=== PATIENT | female | born 1960 | race Caucasian/White ===

== ENCOUNTER → 2016-05-08 | Outpatient (CLI) | payer OTHER, BC | END | disposition home or self-care (01) | LOC: C.PAPS 11:20 | PROVIDERS: ATTEND Obstetrics & Gynecology | DX: Z12.4 Encounter for screening for malignant neoplasm of cervix (principal) ==

== ENCOUNTER → 2016-09-08 | Outpatient (CLI) | payer OTHER ==
--- NOTE | 2016-09-08 11:48 | DIAGNOSTIC IMAGING REPORT ---
Ultrasound guided thyroid aspiration GUIDANCE NEEDLE PLACEMENT CLINICAL HISTORY: LEFT Side, thyroid NODULE nodule TECHNIQUE: Ultrasound guided thyroid aspiration COMPARISON STUDY: 08/24/2016 FINDINGS: Following description of the procedure and informed consent, a single pass with a 25-gauge needle was made to the dominant nodule left thyroid. Pathology indicated adequate specimen volume. There were no complications. IMPRESSION: Successful left thyroid fine-needle aspiration Electronically signed by: German Jean M.D. 09/08/2016 11:47 AM Dictated Date/Time: 09/08/2016 11:46 AM
== END | disposition home or self-care (01) ==
LOC: C.ULTR 10:50
DX: E04.1 Nontoxic single thyroid nodule (principal)

== ENCOUNTER → 2017-01-20 | Outpatient (CLI) | payer OTHER ==
--- NOTE | 2017-01-21 07:46 | MAMMOGRAPHY REPORT ---
BILATERAL DIGITAL SCREENING MAMMOGRAM TOMOSYNTHESIS WITH CAD: 01/20/2017 CLINICAL HISTORY: Routine screening. Patient has no complaints. TECHNIQUE: Breast tomosynthesis in addition to standard 2D mammography was performed. Current study was also evaluated with a Computer Aided Detection (CAD) system. COMPARISON: Comparison is made to exams dated: 10/21/2011 mammogram, 10/01/2010 mammogram - [facility], 08/31/2007, 07/14/2006, and 05/26/2005 mammogram - [facility]. BREAST COMPOSITION: The tissue of both breasts is heterogeneously dense, which may obscure small mas ses. FINDINGS: There are stable benign-appearing calcifications bilaterally, and stable asymmetry in the l ateral right breast. No suspicious mass, architectural distortion or cluster of suspicious microcalc ifications is seen. IMPRESSION: ACR BI-RADS CATEGORY 1: NEGATIVE There is no mammographic evidence of malignancy. A 1 year screening mammogram is recommended. The pa tient will receive written notification of the results. Approximately 10% of breast cancers are not detected with mammography. A negative mammographic report should not delay biopsy if a clinically suggestive mass is present. Vidya Newman M.D. ay/:01/20/2017 13:29:47 [employer]: Adela Guzman, [facility] letter sent: Normal 1/2 BI-RADS Code: ACR BI-RADS Category 1: Negative
== END | disposition home or self-care (01) ==
LOC: C.MAMM 12:35
PROVIDERS: ATTEND Obstetrics & Gynecology
DX: Z12.31 Encounter for screening mammogram for malignant neoplasm of breast (principal)

== ENCOUNTER → 2017-03-30 | Outpatient (CLI) | payer OTHER ==
[2017-03-30 16:34] LABS: BASO % 0.4 %; BASO ABS # 0.02 K/uL (0-0.2); COMPLETE YES; EOS % 1.3 %; HEMATOCRIT 42.5 % (37-47); IG% 0.6 %; LYMPH % 24.5 %; LYMPH ABS # 1.32 K/uL (1.2-3.4); MEAN CELL VOLUME 81.4 fL (80-100); MEAN CORPUSCULAR HEMOGLOBIN 26.8 pg (25-34); MEAN CORPUSCULAR HGB CONC 32.9 g/dl (32-36); MEAN PLATELET VOLUME 10.1 fL (7.4-10.4); MONO % 7.2 %; PLATELET COUNT 192 K/uL (130-400); RED BLOOD COUNT 5.22 M/uL (4.2-5.4); WHITE BLOOD COUNT 5.39 K/uL (4.8-10.8)
[2017-03-30 16:43] LABS: ALT/SGPT 21 U/L (12-78); AST/SGOT 12 U/L (15-37); BLOOD UREA NITROGEN 12 mg/dl (7-18); BUN/CREATININE RATIO 18.6 (10-20); C-REACTIVE PROTEIN < 0.29 mg/dl (0-0.29); CALCIUM 9.2 mg/dl (8.5-10.1); CARBON DIOXIDE 30 mmol/L (21-32); CHLORIDE 104 mmol/L (98-107); CREATININE 0.66 mg/dl (0.60-1.20); GLUCOSE 85 mg/dl (70-99); MAGNESIUM 2.1 mg/dl (1.8-2.4); POTASSIUM 3.4 mmol/L (3.5-5.1); SODIUM 139 mmol/L (136-145)
[2017-03-30 16:52] LABS: ALKALINE PHOSPHATASE 85 U/L (45-117); FERRITIN 19.7 ng/ml (8.0-388.0)
[2017-03-30 17:11] LABS: LYME DISEASE AB IGG NEG (NEG); LYME DISEASE AB IGM NEG (NEG)
[2017-04-02 20:29] LABS: EHRLICHIA CHAFF IGG AB <1:64 (<1:64); EHRLICHIA CHAFF IGM AB <1:20 (<1:20); ENDOMYSIAL IGA AB TC 15064 Negative (Negative); GLIADIN DEAMIDATED IgA AB 3 UNITS (<20); GLIADIN DEAMIDATED IgG AB 3 UNITS (<20); Rheumatoid Factor < 14 IU/ML (<14)
== END | disposition home or self-care (01) ==
LOC: C.LAB 15:00
DX: G62.9 Polyneuropathy, unspecified (principal); M19.90 Unspecified osteoarthritis, unspecified site; E55.9 Vitamin D deficiency, unspecified; E61.1 Iron deficiency

== ENCOUNTER → 2017-04-20 | Outpatient (CLI) | payer OTHER | END | disposition home or self-care (01) | LOC: C.LAB 14:20 | DX: R53.1 Weakness (principal) ==

== ENCOUNTER → 2017-06-17 | Outpatient (CLI) | payer OTHER ==
[2017-06-22 20:18] LABS: ACETYLCHOLINE RECEPT BLOCKING <15 % inhibit (<15); ANA SCREEN TC 249X NEGATIVE (NEGATIVE)
== END | disposition home or self-care (01) ==
LOC: C.LAB 14:36
PROVIDERS: ATTEND Psychiatry & Neurology Neurology
DX: H53.2 Diplopia (principal)

== ENCOUNTER → 2017-08-13 | Outpatient (CLI) | payer OTHER ==
--- NOTE | 2017-08-13 13:53 | DIAGNOSTIC IMAGING REPORT ---
L FOOT MIN 3 VIEWS ROUTINE HISTORY: 57 years-old Female FOOT PAIN acute left foot pain without reported trauma COMPARISON: None available TECHNIQUE: 3 views of the left foot FINDINGS: Bones are mildly demineralized. Mild degenerative changes about the first MTP joint with mild hallux valgus deformity. Marginal spurring about the medial head of the first metatarsal with adjacent soft tissue prominence suggests bunion formation. 4 mm opaque body within the adjacent tissues may reflect a fragmented osteophyte. No acute fracture or dislocation. Moderate enthesophyte about the plantar calcaneus. IMPRESSION: 1. No acute fracture or dislocation. 2. Mild hallux valgus with bunion formation. The above report was generated using voice recognition software. It may contain grammatical, syntax or spelling errors. Electronically signed by: Avelino Rios M.D. 08/13/2017 1:52 PM Dictated Date/Time: 08/13/2017 1:50 PM
== END | disposition home or self-care (01) ==
LOC: C.RAD 13:26
DX: M79.672 Pain in left foot (principal)

== ENCOUNTER 2020-12-16 08:58 | Observation (INO) ==
--- NOTE | 2020-12-11 10:30 | Anesthesiology Consultation ---
Date of Service December 11, 2020 Assessment & Plan (1) Encounter for pre-operative examination: - COVID screening: Per assessment on 11/14: Travel screen negative, no known COVID-19 positive contacts or current COVID-19 related symptoms. Patient vaccin ated. Surgeon arranging preop COVID testing. Awaiting results. - S/P Left [place]SW[place] (01/28/18): [place] [facility] [place] Preop labs: No preop labs done. Will order CBC for AM DOS. Chart Review Chart Review: Acceptable Risk for Surgery (pending CBC/evaluation AM DOS) and Patient NOT seen in Pre Admission Testing History Surgery Operation Date: 12/16/20 07:30 Proposed Procedures p Cystoscopy, Laporascopic Removal of the Uterus and both Fallopian Tubes, Possible Removal of One or Both Ovaries - Amira Cheung MD Height/Weight Height: 5 ft 6 in Weight: 63.503 kg Allergies Allergy/AdvReac Type Severity Reaction Status Date / Time adhesive Allergy Mild RASH Verified 12/03/20 11:35 Medications Home Medications Medication Instructions Recorded Confirmed Last Taken diazepam 5 mg tablet (Valium) 5 mg PO HS PRN 01/23/18 12/03/20 Unknown ibuprofen 200 mg tablet (Advil) 600 - 800 mg PO DIRECTED PRN 01/23/18 12/03/20 Unknown sumatriptan succinate 100 mg tablet 100 mg PO DIRECTED PRN 01/23/18 12/03/20 Unknown vitamin B complex 1 cap PO QAM 02/06/19 12/03/20 Unknown ferrous sulfate 134 mg (27 mg 134 mg PO QAM 11/14/20 12/03/20 Unknown iron) tablet magnesium 250 mg tablet 250 mg PO HS 11/14/20 12/03/20 Unknown selenium 200 mcg tablet 200 mcg PO QAM 11/14/20 12/03/20 Unknown Past Medical History Medical History Back pain Basal cell carcinoma of skin of nose Cardiac murmur Per pt, was told "several years ago". 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 Brother Atrial fibrillation Kidney infarction Grandmother (Maternal) Stroke Family history of diabetes mellitus Hypertension Grandfather (Paternal) Stroke Hypertension Mother Gastric ulcer Hypertension Cataract High cholesterol Father Macular degeneration Grandmother (Paternal) H/O breast surgery Past Surgical History Surgical History H/O right knee surgery prepatellar bursa History of cholecystectomy History of colonoscopy History of dilatation and curettage History of endoscopic sinus surgery History of esophagogastroduodenoscopy (EGD) History of lithotripsy Left ESWL (01/28/18): [place] [facility] [place] History of Moh's micrographic surgery for skin cancer History of tooth extraction wisdom teeth S/P trigger finger release right thumb Social History Smoking Status: Never smoker Do You Dip or Chew Tobacco: No Hx Alcohol Use: Yes Alcohol type: wine alcohol intake frequency: a few times a week Hx Substance Use: No substance use type: does not use Testing Electrocardiogram Date: 12/03/20 Findings: + NSR @
[~2020-12-16 08:58] MED LIST: LACTATED RINGER'S 1,000 ML IV SCH; LR 15ML/HR IV SCH; SODIUM CHLORIDE 0.9% 1000ML 1,000 ML IV SCH; ceFAZolin 2000MG 2,000 MG/15 ML SYR IV SCH
--- NOTE | 2020-12-16 09:54 | History & Physical Bridge Note ---
Date of Service December 16, 2020 History & Physical Bridge Note I have examined the patient, reviewed the History & Physical and in the interval since the performance of the History & Physical I have noted the following changes of clinical significance: no changes noted
[2020-12-16 10:07] LABS: Basophils # (auto) 0.02 K/uL (0-0.2); Basophils % (auto) 0.5 %; Eosinophils # (auto) 0.05 K/uL (0-0.5); Eosinophils % (auto) 1.2 %; Hematocrit (blood only) 41.1 % (37-47); Hemoglobin 13.5 g/dL (12.0-16.0); Immature Granulocytes # (auto) 0.01 K/uL (0.00-0.02); Immature Granulocytes % (auto) 0.2 %; Lymphocytes # (auto) 1.16 K/uL (1.2-3.4); Lymphocytes % (auto) 27.9 %; Mean Corpuscular Hemoglobin 27.4 pg (25-34); Mean Corpuscular Volume 83.4 fL (80-100); Mean Platelet Volume 10.2 fL (7.4-10.4); Monocytes # (auto) 0.33 K/uL (0.11-0.59); Monocytes % (auto) 7.9 %; Neutrophils # (auto) 2.59 K/uL (1.4-6.5); Neutrophils % (auto) 62.3 %; Platelet Count 193 K/uL (130-400); RDW Coefficient of Variation 12.6 % (11.5-14.5); RDW Standard Deviation 37.9 fL (36.4-46.3); Red Blood Count 4.93 M/uL (4.2-5.4); White Blood Count 4.16 K/uL (4.8-10.8)
[2020-12-16 10:23] LABS: Mean Corpuscular Hgb Conc 32.8 g/dL (32-36)
[2020-12-16] MEDS ORDERED: MIDAZOLAM HCL 1 MG/ML 2ML VIAL ONE (10:55)
[2020-12-16] MEDS ORDERED: fentaNYL citrate 100 MCG/2 ML VIAL ONE ×2 (10:55→14:06)
[2020-12-16] MEDS ORDERED: ACETAMINOPHEN 1000 MG/100 ML IV IV ONE (10:57)
[2020-12-16] MEDS ORDERED: fentaNYL citrate 100 MCG/2 ML VIAL IV PRN (11:28)
[2020-12-16] MEDS ORDERED: ATROPINE SULFATE 0.1 MG/ML 10ML SYR IV PRN (11:28)
[2020-12-16] MEDS ORDERED: ePHEDrine sulfate 50 MG/ML AMP IV PRN (11:28)
[2020-12-16] MEDS ORDERED: ONDANSETRON INJ 2 MG/ML 2 ML VIAL IV PRN ×2 (11:28→16:24)
[2020-12-16] MEDS ORDERED: ROCURONIUM BROMIDE 10 MG/ML 5 ML VIAL IV ONE (13:15)
[2020-12-16] MEDS ORDERED: LIDOCAINE 2% 2 ML VIAL/AMP(20MG/ML) INFIL ONE (13:15)
[2020-12-16] MEDS ORDERED: PROPOFOL IV EMULSION 10 MG/ML 20 ML VIAL IV ONE (13:15)
[2020-12-16] MEDS ORDERED: DEXAMETHASONE SOD INJ 4 MG/ML VIAL ONE (13:15)
[2020-12-16] MEDS ORDERED: ONDANSETRON INJ 2 MG/ML 2 ML VIAL ONE ×2 (13:15→14:01)
[2020-12-16] MEDS ORDERED: METHYLENE BLUE 0.5% 10 ML VIAL IV ONE (13:46)
[2020-12-16] MEDS ORDERED: METHYLENE BLUE 0.5% 10 ML VIAL ONE (13:48)
[2020-12-16] MEDS ORDERED: GLYCOPYRROLATE 0.2 MG/ML VIAL ONE (13:57)
[2020-12-16] MEDS ORDERED: NEOSTIGMINE METHYLSULFATE 1 MG/ML 10ML VIAL ONE (13:57)
[2020-12-16] MEDS ORDERED: KETOROLAC 30 MG/ML VIAL IV PRN ×2 (14:15→16:24)
[2020-12-16] MEDS ORDERED: oxyCODONE/ACETAMINOPHEN 5mg/325mg TAB PO PRN ×4 (14:15→16:24)
--- NOTE | 2020-12-16 14:15 | Operative Report ---
PG Post Operative Report Pre & Post Diagnosis Operation Date: 12/16/20 11:00 Pre-Op Diagnosis: Uterine Fibroids, Dyspareunia Post-Op Diagnosis: Same I identified the patient and participated in the time-out.: Yes Procedure Operation Date: 12/16/20 11:00 Actual Procedures Robotic-Assisted Laparoscopic Removal of the Uterus, Cervix and both Fallopian Tubes Cystoscopy Surgeon Amira Cheung MD Carburizing Furnace Operator None Estimated Blood Loss 20 Findings Consistent with Post-Op Diagnosis Specimens 1) Uterus, cervix, bilateral fallopian tubes 2) Small white lesion adherent to the R ovary, peeled off bluntly, and sent for permanent pathology exam Anesthesia Type General Complications none Disposition Accompanied Patient To Recovery: Yes Disposition: Recovery Room Description of Procedure The patient was placed on the table in lithotomy position and prepped/draped in standard sterile fashion. A hard time out was taken prior to proceeding. The baez and V-Care uterine manipulator were placed without complication. Optical entry was made above the umbilicus with a robotic trocar and 5mm camera, which was accomplished without complications. The abdomen was insufflated, and the patient was placed in Trendelenburg. Under direct visualization, right and left lower quadrant ports were placed. The camera was moved to the LLQ port to view the umbilical entry and ensure it was clear and free of injury. Survey of the pelvic organs revealed enlarged fibroid uterus, normal tubes, and normal ovaries, plus a small bright-white lesion adherent to the R ovary's surface. The robot was docked and surgery then proceeded. Ureters were traced along their course bilaterally and seen to be anatomically normal and peristalsing. Cautery was used to dissect each fallopian tube free from its fimbriated end to the cornua. The utero-ovarian ligaments were ligated and divided. The round ligaments were ligated and divided. The broad ligaments were dissected to create a bladder flap and skeletonize the uterine arteries. The bladder was mobilized downwards, the uterine arteries were ligated and divided bilaterally, and the colpotomy was completed circumferentially. The uterus, cervix and tubes were delivered en bloc via the vagina. The small white lesion on the R ovary was grasped and gently and easily peeled free of the surface of the ovary. No bleeding was encountered. This lesion was passed via the vagina and sent for pathology examination. Based on how easily it was removed I am unsure if this represents a true lesion of the ovary or a small phlebolith which happened to be adherent to the exterior of the ovary. A V-Suze suture was introduced via the vagina and used to close the cuff in a running nonlocked manner. The needle was then retrieved via robotic trocar. Suction/irrigation was used to wash and observe all working sites; this final survey of the surgical sites revealed good hemostasis. Cystoscopy was performed after administration of methylene blue dye, and showed an intact bladder dome free of injury and a good strong jet of blue urine from both ureteral orifices. The bladder was then drained. The abdomen was deflated and all instruments were removed. The port sites were closed with 4-0 monocryl and a dermabond dressing. A final vaginal exam ensured no materials remained and the cuff was intact. The patient was transferred to the recovery room in good condition. I attest to the content of the Intraoperative Record and any orders documented therein. Any exceptions are noted below.
[2020-12-16] MEDS ORDERED: PROMETHAZINE HCL 6.25 MG in SODIUM CHLORIDE 0.9% 50 ML IV ONE (15:30)
[2020-12-16] MEDS ORDERED: diphenhydrAMINE 50 MG/ML VIAL ONE (15:38)
[2020-12-16] MEDS ORDERED: diphenhydrAMINE 50 MG/ML VIAL IV STA (15:39)
[2020-12-16] MEDS ORDERED: MAGNESIUM HYDROXIDE SUSP 30 ML UDC PO PRN (16:24)
[2020-12-16] MEDS ORDERED: MEPERIDINE HCL 25 MG/ML CARP/VIAL IV PRN (16:24)
[2020-12-16] MEDS ORDERED: SIMETHICONE 80 MG CHEW PO PRN (16:24)
[2020-12-16] MEDS ORDERED: ACETAMINOPHEN 325 MG TAB PO PRN (16:24)
[2020-12-16] MEDS ORDERED: PROMETHAZINE HCL 12.5 MG in SODIUM CHLORIDE 0.9% 50 ML IV PRN (16:24)
[2020-12-16] MEDS ORDERED: MEPERIDINE HCL 50 MG/ML CARP IV PRN (16:24)
--- NOTE | 2020-12-16 16:34 | Anesthesiology Progress Note ---
Date of Service December 16, 2020 Anesthesia Post Procedure Vital Signs Vital Signs: Temp Pulse Pulse Resp BP Pulse Ox 12/16/20 16:25 63 19 102/63 100 12/16/20 16:15 65 23 103/63 100 12/16/20 16:05 71 24 100/63 100 12/16/20 15:55 69 22 104/64 100 12/16/20 15:45 66 25 H 108/64 100 12/16/20 15:35 70 21 91/59 L 100 12/16/20 15:25 55 L 17 92/59 L 94 12/16/20 15:15 64 22 90/58 L 97 12/16/20 15:05 67 24 95/59 L 93 12/16/20 14:55 61 21 91/57 L 96 12/16/20 14:45 72 19 94/52 L 97 12/16/20 14:35 67 17 95/58 L 100 12/16/20 14:24 36.1 C L 70 16 102/62 98 12/16/20 09:20 36.9 C 99 H 20 139/77 99 Pain Intensity Abdomen: Pain Intensity: 7 Transfer of Care Handoff Completed per policy Notes Mental Status: alert / awake / arousable Patient Amnestic to Procedure: Yes Nausea / Vomiting: adequately controlled Pain: adequately controlled Airway Patency, RR, SpO2: stable & adequate BP & HR: stable & adequate Hydration State: stable & adequate Anesthetic Complications: no major complications apparent and see Notes below Notes: patient having a difficult time controlling pain and nausea. i do not feel that she will do well managing this at home. i spoke with dr crawley and recommended overnight observation for pain and nausea control
--- NOTE | 2020-12-16 19:46 | Communication Note ---
Date of Service: December 16, 2020 Delayed entry due to patient care. I visited with Troy in room 311 at approximately 1750pm, then spoke with her RN on the 3rd floor thereafter. Troy was sleepy, having had pain medicine and phenergan IV in PACU before moving to room 311 for overnight observation. She complained of pain in the abdomen. She had no appetite yet and had only sipped water. She had not yet been out of bed to void. Her abdomen was soft, appropriately tender, with 3 lap sites c/d/i with dermabond. There was a haris pad in place with no VB. Vitals reviewed and within expected ranges for this patient. She was encouraged to rest, take PO when the appetite returned, and notify her care team if pain was not well managed. All questions were answered and she was counseled that surgery had gone smoothly.
--- NOTE | 2020-12-16 20:02 | Communication Note ---
Date of Service: December 16, 2020 After writing my previous update, I called 3E to make sure RN was aware of the amount of time which had passed since baez was removed and there's been no void, as this may contribute to abdominal pain. New shift is on, spoke with [facility], who is agreeable to encouraging patient to mobilize and make attempt to void in BR now. She notes patient was reluctant to even sit upright, or to hold the weight of a glass of water, noting "I don't know if that's OK, I just had surgery." She states she did sit the patient up and discuss that it is more th an OK to go ahead and begin advancing diet, getting out of bed, etc and will encourage patient to reach typical postop milestones through the evening.
--- NOTE | 2020-12-17 08:14 | Gynecologic Progress Note ---
Date of Service December 17, 2020 Assessment & Plan (1) Fibroids, intramural: Plan: Now POD#1 from robotic TLH/salpingectomy/cysto for painful fibroid uterus. Doing well after 23hr obs for pain and nausea control, now meeting milestones and ready for discharge home. Counseled this morning on what to expect and precautions / emergency call number. Has f/u in 2 and 6 weeks. Admission and Anticipated Discharge Date Admission Date: December 16, 2020 Subjective Doing much better this morning; was ambulating the unit when I arrived to see her. Able to get in and out of bed, void, pass gas, no stool; follows a vegan diet so options have been limited here but she tolerated tomato soup and crackers last night well and is ready to eat breakfast if suitable foods are available. Did note some bleeding when she wiped after void this morning but has not been bleeding on pads, thus I suspect that was passage of blood from the vault that remained after the surgery itself. Discussed to expect spotting or light bleeding from time to time during healing of the cuff, but should never have period-like bleeding. Using pain medication with good control, and no further nausea. Has many questions about do's and dont's in the postoperative period which we discussed at bedside this morning. Physical Exam Constitutional: WD/WN, vitals as above Eyes: PERRL, conjunctivae normal, anicteric sclerae ENMT: external ear and nose normal, oropharynx normal Neck: trachea midline, no thyromegaly Respiratory: normal respiratory effort and able to speak in complete sentences; no respiratory distress, no labored breathing and does not use accessory muscles Cardiovascular: Rate/Rhythm: regular rate and regular rhythm Extremities: normal capillary refill; no pedal edema Gastrointestinal (Abdomen): Inspection/Auscultation: abdomen normal to inspection and + abdominal surgical scar (c/d/i x3 with dermabond); abdomen not distended Percussion/Palpation: abdomen soft; abdomen nontender, no hernia and no abdominal mass Musculoskeletal: no cyanosis or clubbing, extremities motor strength 5/5 Skin: no rashes, warm and dry Neurologic: normal touch/pain/proprioception Speech / Cognition: normal speech Psychiatric: Orientation: alert and oriented x 3 Apperance: appeared stated age Eye Contact: good eye contact Motor Behavior: no abnormal motor movements Speech: normal rate/rhythm/volume of speech Affect: euthymic affect Lymphatic: no inguinal lymphadenopathy Results & Data ([facility]) Vital Signs (Past 12 Hours) Vital Signs Temp Pulse Resp BP Pulse Ox 12/17/20 03:31 98.8 F 74 16 94/58 L 97 12/16/20 22:59 98.4 F 80 20 106/67 99 12/16/20 20:34 94 H 20 121/73 97 PG Care Time/CCT Total # of Minutes Spent Total Time Spent with Patient: Total time spent is greater than 50% in coordination of care (as documented) at patient's floor/unit and/or counseling patient: Coding Level of Care Code 48560 Post Operative Follow-Up Diagnoses Fibroids, intramural D25.1
== END 2020-12-17 10:00 | disposition home or self-care (01) ==
LOC: 3E 08:58 → ASU 08:58